=== PATIENT | male | born 1965 | race Caucasian/White ===

== ENCOUNTER 2016-10-02 14:53 | Emergency (ER) | payer OTHER ==
[~2016-10-02] VITALS: Ht 175.3 cm; Wt 94.0 kg
[2016-10-02 14:58] VITALS: BP 136/71; PULSE 85; TEMP 36.7; O2SAT 95; Ht 175.3 cm; Wt 94.0 kg
[2016-10-02] MEDS ORDERED: BUPRTAB51 PO (15:11)
[2016-10-02] MEDS ORDERED: LISI-729 PO (15:11)
[2016-10-02] MEDS ORDERED: CARV25TA2 PO (15:34)
[2016-10-02] MEDS ORDERED: MORP-88 PO (15:34)
[2016-10-02] MEDS ORDERED: TESTOSTERONE INJ (15:34)
[2016-10-02] MEDS ORDERED: PROAIR INH (15:34)
[2016-10-02] MEDS ORDERED: FURO-85 PO (15:34)
[2016-10-02] MEDS ORDERED: ROSU40TA PO (15:34)
[2016-10-02] MEDS ORDERED: SPRIN INH (15:34)
[2016-10-02] MEDS ORDERED: GABA600T PO (15:34)
[2016-10-02] MEDS ORDERED: OXYC1TAB3 PO (15:34)
[2016-10-02] MEDS ORDERED: VALA1TAB2 PO (15:50)
--- NOTE | 2016-10-02 23:22 | EMERGENCY ROOM VISIT NOTE ---
ED Visit Note First contact with patient: 15:12 Chief Complaint: Left-sided facial pain and swelling. History of Present Illness: Mr. Maki is a 51-year-old white male who ambulates into the ED accompanied by his complaining of left-sided facial pain and swelling. Patient reports his symptoms started approximately one week ago when he noted a tingling sensation over the left side of the face and behind the left ear. That has been constant for the last week. Yesterday he reports he started noted some reddening and swelling in the same location of this tingling sensation. Last night he took a shower when he got out of the shower he noticed development of what he describes his bumpy lesions. Since that time he reports he has been having worsening pain and increasing swelling. Currently he rates his discomfort 5/10. His pain is nonradiating. His pain worsens with palpation. He has not identified any alleviating factors related to the pain. He has not taken any medications for pain prior to arrival at the hospital. He did note his any associated symptoms including fevers, chills, sweats, headaches, dizziness, lightheadedness, hearing changes, visual changes, ear drainage, eye drainage, light sensitivity, sore throat, difficulty swallowing, difficulty speaking, neck pain/stiffness, other skin eruptions, other skin color changes, upper respiratory tract symptoms, shortness of breath, decreased appetite, nausea/vomiting. Review of Systems: As noted above in history of present illness. All body systems were reviewed and found to be negative as noted above. Past Medical History: IN with cardiac cath and stent placement, congestive heart failure, acute heart failure, pneumonia, acid reflux, COPD, kidney stones , status post pacemaker/defibrillator implantation, unspecified hernia repair 3. Current Medications: Medications Dose Route/Sig Max Daily Dose Days Date Category Crestor (Rosuvastatin Calcium) 40 Mg Tab 40 Mg PO HS 10/02/16 Reported Neurontin (Gabapentin) 600 Mg Tab 600 Mg PO BID 10/02/16 Reported Coreg (Carvedilol) 25 Mg Tab 25 Mg PO BID 10/02/16 Reported Spiriva Handihaler (Tiotropium [place]) 5 Puff/90 Mcg Aerp 1 Cap INH DAILY 10/02/16 Reported [Testosterone] 1 Ml INJ QOWEEK 10/02/16 Reported Roxicodone Ir (Oxycodone HCl) 5 Mg Tab 5 Mg PO Q4H PRN 10/02/16 Reported Morphine Sulfate Cr (Morphine Sulfate) 60 Mg Tab 60 Mg PO BID 10/02/16 Reported [Proair] 2 Puff INH Q4H PRN 10/02/16 Reported Lasix (Furosemide) 20 Mg Tab 20 Mg PO DAILY PRN 10/02/16 Reported Wellbutrin-Xl (Bupropion HCl) 300 Mg Tabcr 300 Mg PO DAILY 10/02/16 Reported Zestril (Lisinopril) 5 Mg Tab 5 Mg PO DAILY 10/02/16 Reported Allergies to Medications: Patient denies. Social History: Patient is not employed; he feels safe in his home environment; he denies tobacco use and admits to alcohol use. Physical Examination: Vital Signs: Date Time Temp Pulse Resp B/P (MAP) Pulse Ox O2 Delivery O2 Flow Rate FiO2 10/02/16 14:58 36.7 85 20 136/71 95 Room Air GENERAL: 51-year-old male in mild to moderate distress due to pain, nontoxic- appearing, afebrile and hemodynamically stable. NEUROLOGICAL: Awake, alert and oriented to person, place and time. Answering questions appropriately and following commands. Normal gait. Good hand eye coordination. No focal motor or sensory deficits. SKIN: Warm, dry and pink. Head: Extending just posterior to the right ear, over the right ear and into the lateral zygomatic arch area patient has a slightly elevated erythematous layer skin covered with some vesicles. HEENT: Atraumatic and normocephalic. Facial eruptions noted above. No erythema or tenderness over the frontal or maxillary sinuses. No tenderness over the external ears although the right ear is swelling and erythematous. Auditory canals are pink and patent. Tympanic membranes are not erythematous or edematous. PERRLA. EOMI without nystagmus. Sclera white and conjunctiva pink without drainage. No light sensitivity. No drainage from naris. Oral cavity moist and pink. Airway is patent. Pharynx is nonerythematous or edematous. Speech normal. No lymphadenopathy. Trachea midline. No jugular venous distention. BACK: No tenderness over the bony spine. No CVA tenderness. THORAX: Lungs sounds are clear to auscultation and equal bilaterally with symmetrical chest wall. ED Course: Patient is assessed as noted above. Patient's medications were reviewed. Patient's case was reviewed with Dr. Mcgowan; he apparently assessed the patient we agreed on diagnostic approach, treatment, disposition and plan. Patient was educated about tonight's findings and instructed on his treatment plan; he verbalizes understanding and agreement with this plan. Clinical Impression: Herpes zoster. Decision-Making: Initially my differential diagnosis I considered herpes zoster , contact dermatitis, poison ruben dermatitis, hives/allergic reaction and other causes. Disposition: Patient discharged home in stable condition accompanied by his ; prior to departure he was reassessed and subjectively reported he was feeling better and rated his discomfort 3/10. Plan: Patient was encouraged to continue his current medications as prescribed including his narcotics. Patient was prescribed on thousand milligrams of Valtrex 3 times a day for 7 days. 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 Patient was encouraged return ED for worsening pain, spreading of rash, visual changes, eye tearing/sensitivity or any new/concerning symptoms.
== END 2016-10-02 16:00 | disposition home or self-care (01) ==
LOC: C.EDB 14:57 → C.EDD 16:00
DX: B02.9 Zoster without complications (principal); J44.9 Chronic obstructive pulmonary disease, unspecified; I25.2 Old myocardial infarction; Z87.01 Personal history of pneumonia (recurrent); Z95.810 Presence of automatic (implantable) cardiac defibrillator; Z87.442 Personal history of urinary calculi; Z98.61 Coronary angioplasty status; Z98.890 Other specified postprocedural states